=== PATIENT | male | born 1965 | race African-American/Black ===

== ENCOUNTER 2022-08-05 13:01 | Emergency (ER) | payer MEDICAID ==
[~2022-08-05] VITALS: Ht 172.7 cm; Wt 99.0 kg
[2022-08-05 13:04] VITALS: BP 153/104
[2022-08-05] MEDS ORDERED: KETOROLAC 60MG/2ML VIAL IM STA (16:36)
[2022-08-05] MEDS ORDERED: LIDOCAINE HCL 1% 20ML VIAL (Pyxis) INJ INFIL ONE (16:45)
[2022-08-05] MEDS ORDERED: CEFTRIAXONE SODIUM 500 MG/VIAL IM ONE (16:45)
[2022-08-05 17:56] LABS: CLARITY URINE CLOUDY (CLEAR); COLOR URINE DARK YELLOW (YELLOW); KETONES URINE TRACE (NEGATIVE); LEUKOCYTE ESTERASE URINE 3+ (NEGATIVE); NITRITE URINE POSITIVE (NEGATIVE); OCCULT BLOOD URINE 1+ (NEGATIVE); PH URINE 5.5 (4.5-8.0); PROTEIN URINE 1+ (NEGATIVE); SPECIFIC GRAVITY URINE 1.027 (1.005-1.030)
[2022-08-05] MEDS ORDERED: CEPH500C2 PO (18:28)
[2022-08-05] MEDS ORDERED: DOXY100T28 PO (18:28)
[2022-08-05] MEDS ORDERED: NAPR-681 PO (18:28)
[2022-08-10 14:09] LABS: NEISSERIA GONORRHOEAE NAA Negative (Negative)
== END 2022-08-05 19:43 | disposition home or self-care (01) ==
LOC: ER 13:01
DX: N45.1 Epididymitis (principal); N34.2 Other urethritis
CPT/HCPCS: 76870; 81003; 87077; 87086; 87186; 87491; 87591; 93976; 96372; 99285; J0696; J1885; J3490; Z7610

== ENCOUNTER 2022-08-14 17:08 | Emergency (ER) | payer MEDICAID ==
[~2022-08-14] VITALS: Ht 175.3 cm; Wt 100.0 kg
[~2022-08-14 17:08] MED LIST: CEPH500C2 PO; DOXY100T28 PO; NAPR-681 PO
[2022-08-14] MEDS ORDERED: OXYCODONE HCL/ACETAMINOPHEN 5/325MG TABLET PO ONE (22:15)
[2022-08-14] MEDS ORDERED: OXYC-100 PO (22:15)
[2022-08-14 22:29] VITALS: BP 129/84
== END 2022-08-14 22:34 | disposition home or self-care (01) ==
LOC: ER 17:08
DX: N45.1 Epididymitis (principal); Z79.899 Other long term (current) drug therapy
CPT/HCPCS: 99283; Z7610

== ENCOUNTER 2022-08-21 13:40 | Emergency (ER) | payer MEDICAID ==
[~2022-08-21] VITALS: Ht 172.7 cm; Wt 100.0 kg
[~2022-08-21 13:40] MED LIST changes: +OXYC-100 PO
[2022-08-21] MEDS ORDERED: KETOROLAC 30MG/ML VIAL IM ONE (15:30)
[2022-08-21 15:45] LABS: CLARITY URINE CLEAR (CLEAR); COLOR URINE YELLOW (YELLOW); KETONES URINE TRACE (NEGATIVE); LEUKOCYTE ESTERASE URINE NEGATIVE (NEGATIVE); NITRITE URINE NEGATIVE (NEGATIVE); OCCULT BLOOD URINE NEGATIVE (NEGATIVE); PROTEIN URINE TRACE (NEGATIVE); SPECIFIC GRAVITY URINE 1.026 (1.005-1.030); UROBILINOGEN URINE 0.2 E.U./dL (0.2-1.0)
[2022-08-21] MEDS ORDERED: IBUP-2029 MT (17:11)
[2022-08-21] MEDS ORDERED: SULF1TAB48 MT (17:11)
[2022-08-21 17:26] VITALS: BP 147/53
== END 2022-08-21 17:28 | disposition home or self-care (01) ==
LOC: ER 13:54
DX: N50.811 Right testicular pain (principal); Z79.899 Other long term (current) drug therapy
CPT/HCPCS: 76870; 81003; 93976; 96372; 99285